=== PATIENT | male | born 1965 | race Caucasian/White ===

== ENCOUNTER 2017-06-17 06:23 | Day surgery (SDC) | payer OTHER ==
[2017-06-17 06:55] VITALS: BMI 34.9
[2017-06-17 07:03] VITALS: TEMP 98
[2017-06-17] MEDS ORDERED: Propofol 10 mg/ml Inj (20 ML) ONE (08:28)
[2017-06-17] MEDS ORDERED: Lactated Ringer's 500 ML IV SCH (08:30)
[2017-06-17 09:08] VITALS: O2SAT 99
[2017-06-17 10:13] VITALS: BP 115/73; PULSE 56; RESP 18
== END 2017-06-17 10:09 | disposition home or self-care (01) ==
LOC: C.ENDO 06:23
PROVIDERS: ATTEND Internal Medicine Gastroenterology
DX: Z12.11 Encounter for screening for malignant neoplasm of colon (principal); K64.8 Other hemorrhoids
CPT/HCPCS: 45378; J2704; J3010; J7120